=== PATIENT | female | born 1965 | race Caucasian/White ===

== ENCOUNTER 2017-11-02 16:18 | Emergency (ER) | payer OTHER ==
[~2017-11-02] VITALS: Ht 165.1 cm; Wt 102.7 kg
[~2017-11-02 16:18] MED LIST: ATIVAN0.5 MG PO; AVALIDE 150-121 EACH PO; B-121000 MC2 PO; BENTYL10 MG PO; BICARSIM80 MG PO; CINNAMON500 MG PO; HYDROCHLOROTHIA25 MG PO; LOSARTAN POTAS100 MG PO; MECLIZINE HCL25 MG PO; MOTRIN IB200 MG PO; TYLENOL EXTRA500 MG PO; VITAMIN B-6100 MG PO; XANAX0.5 MG PO; ZOFRAN ODT4 MG PO; ZOFRAN4 MG PO
[2017-11-02 16:51] LABS: HEMATOCRIT 43.1 % (36.0-46.0); HEMOGLOBIN 14.9 G/DL (11.9-15.5); MCH 30.8 PG (29.0-34.0); MCHC 34.6 G/DL (30.0-36.0); PLATELET COUNT 236 K/uL (156-360); RBC DIS.WIDTH-CV 12.3 % (11.8-14.6); RBC DIS.WIDTH-SD 40.4 % (39-53); RED BLOOD COUNT 4.84 M/uL (3.80-5.20)
[2017-11-02 16:58] LABS: D-DIMER ELISA < 150.00 ng/mLDDU (<230)
[2017-11-02 17:07] LABS: CHLORIDE 108 mEq/L (99-109); POTASSIUM 3.5 mEq/L (3.7-5.4); SODIUM 141 mEq/L (136-147)
[2017-11-02 17:08] LABS: GLUCOSE 155 mg/dL (70-99)
[2017-11-02 17:12] LABS: CREATININE 0.8 mg/dL (0.6-1.3); GFR ESTIMATE (CALCULATED) > 59 mL/min/
[2017-11-02 17:13] LABS: UREA NITROGEN (BUN) 13 mg/dL (9-23)
[2017-11-02 17:21] LABS: TROP-I INTERPRETATION NEGATIVE; TROPONIN-I < 0.01 ng/mL (0.0-0.30)
[2017-11-02 18:06] VITALS: BP 181/108
== END 2017-11-02 18:13 | disposition home or self-care (01) ==
LOC: EME 16:18
PROVIDERS: Nurse Practitioner Family
DX: J98.01 Acute bronchospasm (principal); I10 Essential (primary) hypertension; K21.9 Gastro-esophageal reflux disease without esophagitis; G43.909 Migraine, unspecified, not intractable, without status migrainosus; F41.9 Anxiety disorder, unspecified; Z85.9 Personal history of malignant neoplasm, unspecified; Z88.1 Allergy status to other antibiotic agents
CPT/HCPCS: 71046; 80048; 84484; 85027; 85379; 93005; 94640; 99281; 99284